=== PATIENT | male | born 1985 | race Caucasian/White ===

== ENCOUNTER 2024-09-12 14:12 | Emergency (ER) | payer OTHER ==
[2024-09-12] MEDS ORDERED: Sodium Chloride 0.9% 10 ML Syringe FLUSH PRN (16:39)
[2024-09-12] MEDS ORDERED: Sodium Chloride 0.9% 2.5 ML Syringe FLUSH PRN (16:39)
[2024-09-12] MEDS ORDERED: Naloxone 0.4 MG/ML SDV IVPUSH PRN (16:40)
[2024-09-12] MEDS: ceFAZolin 2 GM in Water For Injection, Sterile 20 ML IVPUSH ONE (17:26)
[2024-09-12] MEDS: Ondansetron 4 MG/2 ML SDV IVPUSH ONE (17:26)
[2024-09-12] MEDS: Diphtheria,Pertussis(Acell),Tetanus Vaccine 0.5 ML Syringe IM ONE (17:27)
== END 2024-09-12 19:20 | disposition home or self-care (01) ==
LOC: MW.ED 14:12
DX: S62.633A Displaced fracture of distal phalanx of left middle finger, initial encounter for closed fracture (principal); F17.200 Nicotine dependence, unspecified, uncomplicated; Z79.899 Other long term (current) drug therapy; W23.1XXA Caught, crushed, jammed, or pinched between stationary objects, initial encounter; Z23 Encounter for immunization
CPT/HCPCS: 73130; 73140; 90471; 90715; 96374; 96375; 99283; J0690; J1171; J2405